=== PATIENT | female | born 1980 | race Caucasian/White ===

== ENCOUNTER 2016-07-31 22:51 | Emergency (ER) | payer OTHER ==
[~2016-07-31 22:51] MED LIST: ALBUTEROL1.25 MG/1 INH/SOL; ASPIRIN EC81 M1 PO; ATIVAN1 M1 PO; ATORVASTATIN CA10 M1 PO; PANTOPRAZOLE SO40 M1 PO; TIZANIDINE HCL4 M1 PO; XOPENEX HFA15 GM INH; ZOLMITRIPTAN ODT5 MG PO
--- NOTE | 2016-07-31 23:21 | ED GENERAL ADULT ---
History of Present Illness General Chief Complaint: General Adult Stated Complaint: LIGHTHEADED, NAUSEA, PALPITATIONS Source: patient, family, old records Exam Limitations: no limitations Allergies Coded Allergies: ezetimibe (From ZETIA) (Intermediate, RASH TO HANDS 11/03/15) doxycycline (Mild, RASH AND FEVER 11/03/15) ketorolac (Mild, HIVES, FEVER 11/03/15) Reconcile Medications Albuterol Sulfate 1.25 MG/3 ML VIAL.NEB 1 Vial INH/SANTA Q4-6 PRN ASTHMA ( Reported) Aspirin (Ecotrin*) 81 MG TABLET.DR 1 TAB PO DAILY HEART/BLOOD (Reported) Atorvastatin Calcium 10 MG TABLET 1 TAB PO DAILY CHOLESTEROL (Reported) Levalbuterol Tartrate (Xopenex Hfa) 15 GM HFA.AER.AD 2 PUF INH Q4-6 PRN PRN ASTHMA (Reported) Lorazepam (Ativan) 1 MG TABLET 1 TAB PO TID PRN anxiety ten...[id number] Lorazepam (Ativan) 1 MG TABLET 1 TAB PO ADD ADMIN CRITERIA ANXIETY 11/08: use 1 tab around 1pm, one tab around 9pm 11/09-11/10: use 1 tab every 12 hours 11/11-11/12: use half tab every 12 hours 11/13-11/14: use half tab daily Pantoprazole Sodium 40 MG TABLET.DR 1 TAB PO DAILY GI (Reported) Tizanidine HCl 4 MG TABLET 1 TAB PO TID PRN MUSCLE SPASMS (Reported) Zolmitriptan (Zolmitriptan Odt) 5 MG TAB.RAPDIS 1 TAB PO AD PRN MIGRAINES ( Reported) Triage Note: PER PT "LOSS OF FUNCTION" FELT THIS WAY IN AUG 2015 WHEN I WENT THROUGH [place] WITHDRAWAL, HAD A SEIZURE LAST DOSE OF XANAX 0.5 MG WAS 5-7 DAYS AGO RAN OUT EARLY NOT DUE FOR 2 MORE DAYS TO BE FILLED FEEL LIKE I AM PRE SZ. Triage Nurses Notes Reviewed? yes : No Patient currently breastfeeds: No HPI: Patient is a 35-year-old female presents complaining of rapid heartbeat, lightheadedness, generalized malaise. Patient reports that symptoms feel similar to when she was experiencing benzodiazepine withdrawal previously. Patient is prescribed Xanax 0.5 mg 3 times a day, reports that over the past month she has been taking 4-5 pills daily in that approximately 5-7 days ago she ran out of her medication. Patient is scheduled for a refill of her medication in a couple of days. Positive anxiety and tremors. Patient reports symptoms are severe. Patient taking Percocet as needed due to a previous wrist fracture, reports her last dose of Percocet was 2 days ago. Patient denies any seizures over the past week, illicit substance ingestion, vomiting, diarrhea, chest pain, dyspnea. (RADHA VELEZ) Vital Signs & Intake/Output Vital Signs & Intake/Output Vital Signs Date Time Temp Pulse Resp B/P Pulse O2 O2 Flow FiO2 Ox Delivery Rate 08/01 0238 96.9 88 16 97/55 / 0237 96.9 88 18 97/55 96 Room Air 07/31 2350 98.1 108 18 126/82 07/31 2350 98.1 108 18 126/82 97 Room Air 07/31 2309 100.1 123 18 158/94 97 Room Air ED Intake and Output 08/01 0000 07/31 1200 Intake Total Output Total Balance Patient 215 lb Weight Past History Travel History Traveled to [place] past 21 day No Medical History Any Pertinent Medical History? 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 Hx Contributory? No (RADHA VELEZ) Review of Systems Review of Systems Constitutional: Reports: malaise, weakness. Denies: chills, fever. EENTM: Reports: no symptoms. Respiratory: Denies: cough, short of breath. Cardiovascular: Reports: palpitations. Denies: chest pain. GI: Denies: abdominal pain, nausea, vomiting. Genitourinary: Reports: no symptoms. Musculoskeletal: Reports: joint pain (chronic wrist and knee pain). Skin: Reports: no symptoms. Neurological/Psychological: Reports: see HPI, anxiety, depressed (no suicidal ideation). Hematologic/Endocrine: Reports: no symptoms. Immunologic/Allergic: Reports: no symptoms. (RADHA VELEZ) Physical Exam Physical Exam General Appearance: alert, awake, anxious, mild tremors Head: atraumatic, normal appearance Eyes: Bilateral: normal appearance, PERRL, EOMI. Ears, Nose, Throat: normal pharynx, normal ENT inspection, hearing grossly normal Neck: normal inspection, supple, full range of motion Respiratory: normal breath sounds, chest non-tender, no respiratory distress, lungs clear Cardiovascular: tachycardia (regular rhythm) Gastrointestinal: soft, non-tender Extremities: normal inspection, normal capillary refill, normal range of motion, no edema Neurologic/Psych: awake, alert, oriented x 3, anxious appearing, no suicidal or homicidal ideation, no apparent hallucinations. Skin: intact, normal color, warm/dry Lymphatic: no anterior cervical kaushik Core Measures ACS in differential dx? Yes ASA ordered for poss ACS? No-ACS ruled out CVA/TIA Diagnosis: No Severe Sepsis Present: No Septic Shock Present: No (RADHA VELEZ) Progress Differential Diagnoses I considered the following diagnoses in my evaluation of the patient: Benzodiazepine withdrawal, polysubstance abuse, dehydration, dysrhythmia, thyroid dysfunction, electrolyte abnormality Initial ED EKG: sinus tachycardia 117 bpm normal axis, normal intervals, nonspecific ST/T-wave abnormalities, no significant change from previous EKG Prior EKG: unchanged Rhythm Strip: sinus tachycardia Hand-Off Endorsed To: PRANAV ALEMAN,GABE Conway Endorsed Time: 131 Pending: labs, other (re-evaluation) (RADHA VELEZ) Plan of Care: Orders Procedure Date/time Status [facility] 08/01 0009 Active THYROID STIMULATING HORMONE 07/31 2335 Complete ETHANOL 07/31 2335 Complete Add-on Test (ER Only) 07/31 2328 Active Telemetry/Analog Ic Design Engineer 07/31 232 Active URINE DRUG SCREEN FOR ER ONLY 07/31 2307 Complete TROPONIN LEVEL 07/31 230 Complete HUMAN BETA HCG SCREEN 07/31 2306 Complete COMPREHENSIVE METABOLIC PANEL 07/31 2306 Complete CBC WITHOUT DIFFERENTIAL 07/31 2305 Complete EKG 07/31 2253 Active Laboratory Tests 08/01/16 0204: Urine Opiates Screen 879.00, Methadone Screen 70, Barbiturate Screen < 60, Ur Phencyclidine Scrn < 6.00, Amphetamines Screen < 100, U Benzodiazepines Scrn 107 , Urine Cocaine Screen < 50, Urine Cannabis Screen < 5.00 08/01/16 0015: Anion Gap 13, Estimated GFR > 60, BUN/Creatinine Ratio 24.3, Glucose 102 H, Calcium 9.8, Total Bilirubin 0.4, AST 17, ALT 28, Alkaline Phosphatase 87, Troponin I < 0.01, Total Protein 7.9, Albumin 4.5, Globulin 3.4, Albumin/ Globulin Ratio 1.3, TSH 1.090, Total Beta HCG NEGATIVE, Serum Alcohol < 10.0 07/31/16 2335: CBC w Diff MAN DIFF ORDERED, RBC 4.61, MCV 83.9, MCH 28.0, RDW 13.9, MPV 8.6, Gran % 79.0 H, Lymphocytes % 13.8 L, Monocytes % 6.1, Eosinophils % 0.5, Basophils % 0.6, Absolute Granulocytes 12.8 H, Segmented Neutrophils 72, Absolute Lymphocytes 2.2, Lymphocytes 19 L, Monocytes 7, Absolute Monocytes 1.0 H, Eosinophils 1, Absolute Eosinophils 0.1, Basophils 1, Absolute Basophils 0.1 , Platelet Estimate ADEQUATE, Normocytic RBCs VERIFIED, Normochromic RBCs VERIFIED, PUBS MCHC 33.4 07/31/16 2306: D-Dimer Cancelled 0040: Patient's tachycardia improved to 90 bpm after IV ativan. patient currently sleeping. Awaiting results of labs. 0055: Patient reports moderate improvement. Mild chills. Discussed elevated WBC with patient. No current respiratory or GI symptoms. No focal infectious source identified. Signed out to Dr. Brennan. (RADHA VELEZ) Departure Departure Disposition: HOME OR SELF CARE Condition: Stable Clinical Impression Primary Impression: Benzodiazepine withdrawal Referrals: EMILIO JASSO MD (PCP/Family) Referred to [facility] as new patient No Departure Forms: Customer Survey General Discharge Information Prescriptions: Current Visit Scripts Lorazepam (Ativan) 1 TAB PO TID PRN anxiety #10 TAB ten...[id number] (RADHA VELEZ) Departure Comments 08/01/16, 2:49am... pt resting comfortably after supportive medications. I gave her a rx for ativan. She will follow up with her pmd. PA/TESTING MACHINE OPERATOR Co-Sign Statement Statement: ED Attending supervision documentation- [x] I saw and evaluated the patient. I have also reviewed all the pertinent lab results and diagnostic results. I agree with the findings and the plan of care as documented in the PA's/TESTING MACHINE OPERATOR's documentation. [] I have reviewed the ED Record and agree with the PA's/TESTING MACHINE OPERATOR's documentation. [] Additions or exceptions (if any) to the PAs/TESTING MACHINE OPERATOR's note and plan are summarized below: [] (PRANAV ALEMAN,GABE Conway) Critical Care Note Critical Care Note Critical Care Time: non-applicable (MELLISA JI,RADHA)
[2016-07-31 23:57] LABS: ABSOLUTE BASOPHIL COUNT 0.1 /CUMM (0.0-0.2); ABSOLUTE EOSINOPHIL COUNT 0.1 /CUMM (0.0-0.7); ABSOLUTE GRANULOCYTE CT 12.8 /CUMM (1.4-6.5); ABSOLUTE LYMPH COUNT 2.2 /CUMM (1.2-3.4); BASOPHIL % 0.6 % (0.0-2.0); EOSINOPHIL % 0.5 % (0-5); HEMATOCRIT 38.7 % (37-47); MEAN CORPUSCULAR HGB CONC 33.4 G/DL (33.0-37.0); MEAN CORPUSCULAR VOLUME 83.9 FL (81.0-99.0); MEAN PLATELET VOLUME 8.6 FL (7.4-10.4); PLATELET COUNT 423 /CUMM (130-400); RBC DISTRIBUTION WIDTH 13.9 % (11.5-14.5); RED BLOOD CELL CT 4.61 /CUMM (4.20-5.40); WHITE BLOOD CELL COUNT 16.1 /CUMM (4.8-10.8)
[2016-08-01] MEDS ORDERED: ATIVAN1 M1 PO (01:24)
[2016-08-01 02:38] VITALS: BP 97/55
== END 2016-08-01 02:54 ==
LOC: ERH 22:51
PROVIDERS: Pediatrics
DX: F13.239 Sedative, hypnotic or anxiolytic dependence with withdrawal, unspecified (principal)
CPT/HCPCS: 80307; 93005; 93010; 96361; 96374; G0480

== ENCOUNTER 2016-10-18 14:42 | Inpatient (IN) | payer OTHER ==
[~2016-10-18] VITALS: Ht 165.1 cm; Wt 90.7 kg
--- NOTE | 2016-10-18 14:47 | NUR ---
PT STATES SHE IS HAVING SOB WENT TO URGENT CARE RATTALING IN HER CHEST THAT CLEARED WITH COUGH. PT STATES DAY THREE SHE IS HAVING THICK SPUTUM. PROGRESSIVLY GETTING WORSE. PT STATES AT URGENT CARE HER 02 SAT WAS IN THE 80'S
--- NOTE | 2016-10-18 14:50 | NUR ---
PT STATES SHE IS ON AMOXICILLIN CURRENTLY FOR A DENTAL PROCEDURE SHE WILL BE HAVING DONE.
--- NOTE | 2016-10-18 16:11 | ED DYSPNEA/ASTHMA COMPLAINT ---
History of Present Illness General Chief Complaint: Upper Respiratory Sx/Fever Stated Complaint: SENT BY URGENT CARE FOR EVAL OF COUGH Source: patient Exam Limitations: no limitations Vital Signs & Intake/Output Vital Signs & Intake/Output Vital Signs Date Time Temp Pulse Resp B/P Pulse O2 O2 Flow FiO2 Ox Delivery Rate 10/20 1110 98 Room Air Room Air 10/20 0800 98 Nasal 1.0L Cannula 10/20 0708 98.1 82 20 118/70 98 Nasal 1.0L Cannula 10/20 0410 98 Nasal 1.0L Cannula 10/20 0000 Room Air 1.0L 10/19 2230 97.6 90 20 120/70 95 Nasal Cannula 10/19 2150 95 Nasal 1.0L Cannula 10/19 1600 Nasal 1.0L Cannula ED Intake and Output 10/20 0000 10/19 1200 Intake Total 1050 800 Output Total Balance 1050 800 Intake, IV 250 800 Intake, Oral 800 Number 2 Bowel Movements Allergies Coded Allergies: ezetimibe (From ZETIA) (Intermediate, RASH TO HANDS 11/03/15) doxycycline (Mild, RASH AND FEVER 11/03/15) ketorolac (Mild, HIVES, FEVER 11/03/15) Reconcile Medications Albuterol Sulfate 1.25 MG/3 ML VIAL.NEB 1 Vial INH/SANTA Q4-6 PRN ASTHMA ( Reported) Alprazolam 0.5 MG TABLET 1 TAB PO TID anxiety (Reported) Atorvastatin Calcium 10 MG TABLET 1 TAB PO DAILY CHOLESTEROL (Reported) Azithromycin 250 MG TABLET 250 MG PO DAILY LUNG INFECTION Fluoxetine HCl 20 MG CAPSULE 1 CAP PO DAILY DEPRESSION/ANXIETY (Reported) Levalbuterol Tartrate (Xopenex Hfa) 15 GM HFA.AER.AD 2 PUF INH Q4-6 PRN PRN ASTHMA . Pantoprazole Sodium 40 MG TABLET.DR 1 TAB PO DAILY GI (Reported) Prednisone 10 MG TABLET 1 TAB PO DAILY BREATHING 3 PILL X 3 DAYS 2 PILL X 3 DAYS 1 PILL X 3 DAYS. Temazepam 15 MG CAPSULE 1 CAP PO QPMP SLEEP AIDE (Reported) Tizanidine HCl 4 MG TABLET 1 TAB PO FOUR TIMES A DAY PRN TMJ syndrome ( Reported) Zolmitriptan (Zolmitriptan Odt) 5 MG TAB.RAPDIS 1 TAB PO AD PRN MIGRAINES ( Reported) Triage Note: PT STATES SHE IS HAVING SOB WENT TO URGENT CARE RATTALING IN HER CHEST THAT CLEARED WITH COUGH. PT STATES DAY THREE SHE IS HAVING THICK SPUTUM. PROGRESSIVLY GETTING WORSE. PT STATES AT URGENT CARE HER 02 SAT WAS IN THE 80'S Triage Nurses Notes Reviewed? yes : No Patient currently breastfeeds: No HPI: This patient is a 36 year old female with a past medical history including asthma who presented to the emergency department today for evaluation of shortness of breath. The patient reported that about 4 days ago she was clearing the snow off her car when she started to have, "a bronchospasm." She reported that she was sweating and had to take deep breaths. She has had a cough productive of yellow-brown sputum and increased difficulty breathing over the last couple of days. Tpday she woke up, "very photosensitive and with a headache." She denied any chest pain, abdominal pain, nausea, vomiting, or diarrhea. (TACHO HUANG PA-C) Past History Travel History Traveled to [place] past 21 day No Medical History Any Pertinent Medical History? 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 Hx Contributory? No (TACHO HUANG PA-C) Review of Systems Review of Systems Constitutional: Reports: no symptoms. EENTM: Reports: no symptoms. Respiratory: Reports: see HPI. Cardiovascular: Reports: no symptoms. GI: Reports: no symptoms. Genitourinary: Reports: no symptoms. Musculoskeletal: Reports: no symptoms. Skin: Reports: no symptoms. Neurological/Psychological: Reports: see HPI. All Other Systems: Reviewed and Negative (TACHO HUANG PA-C) Physical Exam Physical Exam Respiratory: chest non-tender, mild respiratory distress. wheezes and rhonchi in all lung bailey. no rales or diminished breath sounds. Comments: Well-developed well-nourished person in no acute distress HEENT: Normal EENT exam, head normocephalic, moist mucous membranes Pupils equally round and reactive to light. Neck: Supple, no lymphadenopathy. No midline tenderness. Full range of motion Back: Normal gait Cardiovascular: Regular rate and rhythm with no murmurs, rubs, or gallops Abdomen: Soft, nontender, nondistended Extremity: No edema, no calf tenderness to palpation, normal and equal pulses. Neuro: Alert oriented x3, cranial nerves II through XII grossly intact. Skin: No appreciable rash on exposed skin, skin is warm and dry. Psych: Mood and affect is normal Core Measures ACS in differential dx? Yes Severe Sepsis Present: No Septic Shock Present: No (REINA GARDNER,TACHO) Progress Differential Diagnosis: asthma, AMI, bronchitis, costochondritis, CHF, COPD, musculoskeletal pain, pericarditis, pulmonary embolism, pneumonia, unstable angina Plan of Care: Orders Procedure Date/time Status BASIC ELECTROLYTES PLUS BUN&CR 10/20 0744 Complete Discharge Patient 10/20 UNK Active OXYGEN 10/19 UNK Complete OXYGEN DAILY CHARGE 10/19 UNK Complete Anticipated Discharge 10/19 UNK Active Current Medications Sig/Hilario Start time Last Medication Dose Stop Time Status Admin Patient Medication 1 ED ONE 10/20 0000 NR Teaching 10/20 2359 (Medication Education ONE) Laboratory Tests 10/20/16 0821: Anion Gap 9, Estimated GFR > 60, BUN/Creatinine Ratio 23.3 Diagnostic Imaging: Viewed by Me: CT Scan. Discussed w/RAD: CT Scan. Radiology Impression: PATIENT: MARY MOTT PRESENT AGE: 36 PATIENT ACCOUNT NO: [id number] : 78 LOCATION: [facility] ORDERING PHYSICIAN: TACHO HUANG PA-C SERVICE DATE: 10/18/16 EXAM TYPE: CAT - CTA CHEST-PULMONARY EMBOLISM EXAMINATION: CT ANGIOGRAM OF THE CHEST WITH AND WITHOUT CONTRAST (CT PULMONARY ANGIOGRAM FOR PE) CLINICAL INFORMATION: Cough. Elevated d-dimer. Clinical concern regarding pulmonary embolus COMPARISON : None TECHNIQUE: Prior to contrast administration, noncontrast localization images were obtained. Subsequently, multidetector volumetric imaging was performed from the thoracic inlet to below the diaphragms following the administration of 95 mL Optiray 350 intravenous contrast. No contrast reaction reported Sagittal, coronal, and MIP oblique sagittal reformatted images were obtained on the CT workstation, uploaded to PACS, and reviewed. Total exam dose- length product 492 mGy-cm FINDINGS: DIGITAL TELEVISION CAMERA OPERATOR: Diffuse opacities throughout both lungs QUALITY OF STUDY/CONTRAST BOLUS: Satisfactory. There is motion artifact PULMONARY ARTERIES: No pulmonary embolus demonstrated THORACIC AORTA: No aneurysm or dissection. LUNG: No abnormality the trachea or mainstem bronchi. There are extensive perihilar and diffuse areas of groundglass disease with sparing of the peripheral lungs. Pattern suggests edema. PLEURA: No significant pleural fluid. Trace thickening in the extreme posterior cusp and sulci. There is no pneumothorax MEDIASTINUM: There are no enlarged mediastinal or hilar lymph nodes. There is no pericardial fluid. No suspicious abnormality esophagus No evidence of septal bowing or right heart strain. CHEST WALL/AXILLA: No axillary or internal mammary lymphadenopathy. OSSEOUS STRUCTURES: No suspicious focal bony lesion UPPER ABDOMEN: Incompletely characterized rounded low attenuating lesion medial upper right kidney. This measures 28 Hounsfield units after contrast. This has either developed or increased when compared to abdomen . Neoplasm not excluded. Further evaluation warranted. No reflux of contrast into the hepatic veins to suggest elevated right heart pressures. IMPRESSION: No pulmonary embolus. Extensive bilateral groundglass disease. This could be related to edema 2.1 cm low attenuating mass medial upper right kidney. Differential includes malignancy. Further evaluation warranted. If there is any evidence of focal pyelonephritis medical management and follow-up imaging recommended. VTE: negative DICTATED BY: RENETTA UREÑA MD DATE/TIME DICTATED:1841 GROUND OPERATIONS SUPERINTENDENT:SANDRA DATE/TIME TRANSCRIBED:10/18/161841 CONFIDENTIAL, DO NOT COPY WITHOUT APPROPRIATE AUTHORIZATION. <Electronically signed in Other Vendor System> SIGNED BY: RENETTA UREÑA MD 10/18/16 3364 Initial ED EKG: normal axis, normal intervals, normal sinus rhythm, no ST T wave changes, 87 bpm Comments: 10/18/2016 4:10:42 PM: This patient was moved into a room. Oxygen on room air is dropping into the mid 80s. She'll be put on oxygen. The patient also reported that she is on medication because she has, "a baseline high heart rate." (REINA GARDNER,TACHO) Departure Departure Disposition: STILL A PATIENT Condition: Stable Clinical Impression Primary Impression: Hypoxia Referrals: EMILIO JASSO MD (PCP/Family) Departure Forms: Customer Survey General Discharge Information Prescriptions: Current Visit Scripts Azithromycin 250 MG PO DAILY #2 TAB Prednisone 1 TAB PO DAILY #21 TAB 3 PILL X 3 DAYS 2 PILL X 3 DAYS 1 PILL X 3 DAYS. Levalbuterol Tartrate (Xopenex Hfa) 2 PUF INH Q4-6 PRN PRN ASTHMA #1 INHAL . Admission Note Spoke With: VERONIKA GUPTA MDOdilon Documentation of Exam: Documentation of any treatments & extenuating circumstances including Concerns Regarding Discharge (functional status, medication knowledge or non-compliance, living conditions, etc.) that warrant an admission rather than observation: [ This patient is a 36 year old female with a past medical history including asthma who presented for cough and shortness of breath. Hypoxic at 88% on room air. Retaining CO2 based on ABG. Groundglass opacities seen on CTA of the chest. This patient will need to be admitted for oxygen therapy, pulmonology consult, follow-up cultures, trend labs, serial duoneb treatments, and possible cardiology consult. Premature discharge could prove medically harmful.] (TACHO HUANG PA-C) PA/OPERATIONS AND MAINTENANCE TECHNICIAN Co-Sign Statement Statement: ED Attending supervision documentation- [] I saw and evaluated the patient. I have also reviewed all the pertinent lab results and diagnostic results. I agree with the findings and the plan of care as documented in the PA's/OPERATIONS AND MAINTENANCE TECHNICIAN's documentation. [X] I have reviewed the ED Record and agree with the PA's/OPERATIONS AND MAINTENANCE TECHNICIAN's documentation. [] Additions or exceptions (if any) to the PAs/OPERATIONS AND MAINTENANCE TECHNICIAN's note and plan are summarized below: [] (AKILAH ALEMAN,SHANE) Critical Care Note Critical Care Note Critical Care Time: 30-74 min (TACHO HUANG PA-C)
[2016-10-18 16:42] LABS: ABSOLUTE BASOPHIL COUNT 0 /CUMM (0.0-0.2); ABSOLUTE EOSINOPHIL COUNT 0.1 /CUMM (0.0-0.7); ABSOLUTE GRANULOCYTE CT 11.9 /CUMM (1.4-6.5); ABSOLUTE LYMPH COUNT 1.3 /CUMM (1.2-3.4); ABSOLUTE MONOCYTE COUNT 0.7 /CUMM (0.10-0.60); BASOPHIL % 0.3 % (0.0-2.0); GRANULOCYTE % 84.7 % (42.2-75.2); HEMATOCRIT 34.7 % (37-47); MEAN CORPUSCULAR HGB 26.1 PG (27.0-31.0); MEAN CORPUSCULAR HGB CONC 32.2 G/DL (33.0-37.0); MEAN CORPUSCULAR VOLUME 80.8 FL (81.0-99.0); MEAN PLATELET VOLUME 8.7 FL (7.4-10.4); PLATELET COUNT 287 /CUMM (130-400); RBC DISTRIBUTION WIDTH 14.8 % (11.5-14.5); RED BLOOD CELL CT 4.29 /CUMM (4.20-5.40)
--- NOTE | 2016-10-18 18:57 | CT SCAN REPORT ---
EXAMINATION: CT ANGIOGRAM OF THE CHEST WITH AND WITHOUT CONTRAST (CT PULMONARY ANGIOGRAM FOR PE) CLINICAL INFORMATION: Cough. Elevated d-dimer. Clinical concern regarding pulmonary embolus COMPARISON: None TECHNIQUE: Prior to contrast administration, noncontrast localization images were obtained. Subsequently, multidetector volumetric imaging was performed from the thoracic inlet to below the diaphragms following the administration of 95 mL Optiray 350 intravenous contrast. No contrast reaction reported Sagittal, coronal, and MIP oblique sagittal reformatted images were obtained on the CT workstation, uploaded to PACS, and reviewed. Total exam dose-length product 492 mGy-cm FINDINGS: DIGITAL LAND APPRAISER: Diffuse opacities throughout both lungs QUALITY OF STUDY/CONTRAST BOLUS: Satisfactory. There is motion artifact PULMONARY ARTERIES: No pulmonary embolus demonstrated THORACIC AORTA: No aneurysm or dissection. LUNG: No abnormality the trachea or mainstem bronchi. There are extensive perihilar and diffuse areas of groundglass disease with sparing of the peripheral lungs. Pattern suggests edema. PLEURA: No significant pleural fluid. Trace thickening in the extreme posterior cusp and sulci. There is no pneumothorax MEDIASTINUM: There are no enlarged mediastinal or hilar lymph nodes. There is no pericardial fluid. No suspicious abnormality esophagus No evidence of septal bowing or right heart strain. CHEST WALL/AXILLA: No axillary or internal mammary lymphadenopathy. OSSEOUS STRUCTURES: No suspicious focal bony lesion UPPER ABDOMEN: Incompletely characterized rounded low attenuating lesion medial upper right kidney. This measures 28 Hounsfield units after contrast. This has either developed or increased when compared to abdomen 12/07/09. Neoplasm not excluded. Further evaluation warranted. No reflux of contrast into the hepatic veins to suggest elevated right heart pressures. IMPRESSION: No pulmonary embolus. Extensive bilateral groundglass disease. This could be related to edema 2.1 cm low attenuating mass medial upper right kidney. Differential includes malignancy. Further evaluation warranted. If there is any evidence of focal pyelonephritis medical management and follow-up imaging recommended. VTE: negative
--- NOTE | 2016-10-18 19:21 | NUR ---
TO CT SCAN PER CART
--- NOTE | 2016-10-18 19:56 | History & Physical ---
BROOK ALEMAN,EUGENIOOdilon 10/18/161954: [facility] Statement: I have seen and personally examined MARY MOTT and documented this H&P. The patient is a 36 year old F who presented with a patient stated chief complaint of [SOB and headache]. Source of Information: patient, old records Exam Limitations: no limitations History of Present Illness: This is a 36 yo female with PMH migraine, seizure 2/2 benzo withdrawl, hyperlipidemia, asthma who comes in from urgent care 2/2 low saturations. Patient states her symptoms started 4 days ago when she was cleaning snow off her car and had a "bronchospasm." Initial symptoms seemed to improve with rest and inhalers. However for the past 4 days she has noted progressively worsening wheezing, night time cough- at times productive, and shortness of breath. In conjunction with respiratory symptoms, patient has noted worsening headache. She does have a history of migraines but she says this headache feels different than previous episodes. She notes stiff neck, nausea, photophobia, and generalized ache throughout her head. As symptoms were not improving with her nebs, inhaler and rest, patient went to urgent care where she was found to be desaturating in the 80s and she was sent to the hospital. Note that patient has significant social history of smoking 0.5-1 pack a day for the past 20 years. She has a history of heroin use. She stated 4 days ago she had snorted some herion after 3 yrs of abstaining from the drug. Denies any hx of IVDA. Patient has recent history of impetigo for which she finished a course of Bactrim DS about 2 weeks ago. She had recent bone graft placed in oral cavity. She was scheduled for tooth extraction yesterday but was not done. For her dental work prophylaxis she had been placed on amoxicillin for the past month. Patient has previous admission [facility] in October 2015 for benzodiazepine withdrawal. 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 She denies any odynophagia, Sore Throat, Difficulty Swallowing, Change in Vision , Dizziness, Diarrhea, vomiting, melena, bright red blood per rectum, constipation, vertigo, but endorses rhinorrhea, headache, neck pain, nausea, and shortness of breath. Allergies/Medications Allergies: Coded Allergies: ezetimibe (From ZETIA) (Intermediate, RASH TO HANDS 11/03/15) doxycycline (Mild, RASH AND FEVER 11/03/15) ketorolac (Mild, HIVES, FEVER 11/03/15) Home Med list Albuterol Sulfate 1.25 MG/3 ML VIAL.NEB 1 Vial INH/SANTA Q4-6 PRN ASTHMA ( Reported) Alprazolam 0.5 MG TABLET 1 TAB PO TID anxiety (Reported) Atorvastatin Calcium 10 MG TABLET 1 TAB PO DAILY CHOLESTEROL (Reported) Fluoxetine HCl 20 MG CAPSULE 1 CAP PO DAILY DEPRESSION/ANXIETY (Reported) Levalbuterol Tartrate (Xopenex Hfa) 15 GM HFA.AER.AD 2 PUF INH Q4-6 PRN PRN ASTHMA (Reported) Pantoprazole Sodium 40 MG TABLET.DR 1 TAB PO DAILY GI (Reported) Temazepam 15 MG CAPSULE 1 CAP PO QPMP SLEEP AIDE (Reported) Tizanidine HCl 4 MG TABLET 1 TAB PO FOUR TIMES A DAY PRN TMJ syndrome ( Reported) Zolmitriptan (Zolmitriptan Odt) 5 MG TAB.RAPDIS 1 TAB PO AD PRN MIGRAINES ( Reported) Compliance With Home Meds: UNKNOWN Past History Travel History Traveled to [place] past 21 day No Medical History Neurological: migraine, seizure (benzodiazepine withdrawal) EENT: NONE Cardiovascular: hyperlipidemia Respiratory: asthma Gastrointestinal: NONE Hepatic: NONE Renal: NONE Musculoskeletal: NONE Psychiatric: substance abuse, benzodiazepine abuse, HEROIN USE (SNORTS) Endocrine: NONE Blood Disorders: NONE Cancer(s): NONE SENIOR ANALYST MARKET INTELLIGENCE/Reproductive: NONE History of MRSA: Yes History of VRE: No History of CDIFF: No Pneumonia Vaccine Status: Given in past- Date Above Tetanus Vaccine: 05/06/15 Surgical History Surgical History: BONE GRAFT IN ORAL CAVITY, TONSILS REMOVED, L. KNEE SURGERY, Lap for ruptured ovarian cyst Past Family/Social History Family History Relations & Conditions if any MOTHER FATHER (CAD). Psychosocial History Smoking Status: Heavy Tobacco Smoker ETOH Use: occasional use Illicit Drug Use: heroin Functional Ability ADLs Independent: dressing, eating, toileting, bathing. Ambulation: independent IADLs Needs Assist: shopping, housework, finances, food prep, telephone, transportation, medication admin. Sexual History Sexually Active No Review of Systems Review of Systems Constitutional: Reports: chills, fever, malaise. Denies: diaphoresis. EENTM: Denies: blurred vision, double vision, visual changes, ear pain, nasal pain, throat pain. Cardiovascular: Denies: chest pain, palpitations, peripheral edema. Respiratory: Reports: cough, short of breath, sputum production, wheezing. Denies: hemoptysis. GI: Reports: nausea. Denies: abdominal pain, constipation, diarrhea, vomiting. Genitourinary: Reports: no symptoms. Musculoskeletal: Reports: neck pain. Exam & Diagnostic Data Last 24 Hrs of Vital Signs/I&O Vital Signs Date Time Temp Pulse Resp B/P Pulse O2 O2 Flow FiO2 Ox Delivery Rate 10/18 2257 97.9 90 20 104/66 94 Nasal 3.0L Cannula 10/18 2154 98.0 88 20 102/71 98 Nasal 4.0L Cannula 10/18 1637 98 Nasal 2.0L Cannula 10/18 1611 99.0 102 22 102/58 88 Room Air 10/18 1448 97.5 101 18 122/70 90 Room Air Intake & Output 10/18 1600 10/18 0800 10/18 0000 Intake Total Output Total Balance Patient 90.718 kg Weight Physical Exam General Appearance Alert, Oriented X3, Cooperative, No Acute Distress Skin scabbed over impetigo in arms; rash on abdomen (l. side about 3x3 in; looks erythematous, nontender, non purulent) HEENT EOMI, Mucous Membr. moist/pink, pupils dilated, reactive to light. Neck Supple, negative Kernig and Brudzinski Cardiovascular Regular Rate, Normal S1, Normal S2, No Murmurs Lungs No wheezing appreicated. Slight crackles on l side. Diminished air sounds Abdomen Soft, No Tenderness Neurological Normal Speech, Strength at 5/5 X4 Ext, Sensation Intact, Cranial Nerves 3-12 NL Extremities No Clubbing, No Cyanosis, No Edema, Normal Pulses Last 24 Hrs of Labs/Speedy: Laboratory Tests 10/18/16 1713: pH 7.38, pCO2 46 H, pO2 78 L, HCO3 26.2, ABG O2 Sat (Measured) 96.0, Carboxyhemoglobin 1.6, O2 Concentration % 3L, Temperature 97.5, O2 Delivery Method NC, Phlebotomy Draw Site LEFT RADIAL 10/18/16 1640: Infectious Morgan Titer NEGATIVE 10/18/16 1630: Anion Gap 8, Estimated GFR > 60, BUN/Creatinine Ratio 15.0, Glucose 102 H, Calcium 9.5, Magnesium 2.2, Total Bilirubin 0.4, AST 29, ALT 35, Alkaline Phosphatase 116, Troponin I < 0.01, Mwo-V-Pweokanfmzq Pept 1760 H, Total Protein 7.1, Albumin 3.9, Globulin 3.2, Albumin/Globulin Ratio 1.2, Total Beta HCG NEGATIVE, D-Dimer 482 H, CBC w Diff NO MAN DIFF REQ, RBC 4.29, MCV 80.8 L, MCH 26.1 L, RDW 14.8 H, MPV 8.7, Gran % 84.7 H, Lymphocytes % 8.9 L, Monocytes % 5.1, Eosinophils % 1.0, Basophils % 0.3, Absolute Granulocytes 11.9 H, Absolute Lymphocytes 1.3, Absolute Monocytes 0.7 H, Absolute Eosinophils 0.1 , Absolute Basophils 0, PUBS MCHC 32.2 L, Hepatitis A IgM Ab Pending, Hep Bs Antigen Pending, Hep B Core IgM Ab Conf Pending, Hepatitis C Antibody Pending, HIV 1&2 Ab Western Blot NONREACTIVE Microbiology 10/19 2111 NASOPHARYN: Influenza Virus A & B Rapid Smear - ORD 10/18 2046 BLOOD: Blood Culture - RECD 10/18 2045 URINE ROUT: Legionella Antigen - ORD 10/18 2045 URINE ROUT: Streptococcus pneumoniae Antigen (M - ORD 10/18 2045 LOWER RESP: Respiratory Culture - ORD 10/18 2045 LOWER RESP: Gram Stain - ORD 10/18 1830 BLOOD: Blood Culture - RECD Assessment/Plan Assessment: This is a 28-year-old female past medical history significant for migraine, seizures secondary to benzo withdrawal, hyperlipidemia, asthma, substance abuse in the form of snorting heroin, who comes in for chief complaint of shortness of breath. She has white count of 14 and CTA shows extensive groundglass opacities. Differential includes: CAP, atypical pneumonia, pneumonitis secondary to snorting heroin, asthma exacerbation, COPD exacerbation. Plan Hypoxia: Patient was found to be satting in the 80s at urgent care. Here she was found to be satting 88. ABG shows: 7.38/46/26.2. D-dimer elevated at 482. CTA negative for pulmonary embolus. CTA shows evidence of extensive groundglass opacities bilaterally. White count of 14. Patient reports MAXIMUM TEMPERATURE 100.8 at home. It is difficult to attribute the white count and fever solely to pneumonia in light of the groundglass opacities, history of amoxicillin use and the temporal relationship of her symptoms to heroin. We'll currently treat as atypical pneumonia versus pneumonitis. * Azithromycin * TRC * Vision 1 dose of ceftriaxone in ED. We will hold off on any further doses. If she spikes fever or has clinical evidence of pneumonia we will resume antibiotic. * Nasal cannula for O2 sat greater than 92% * Negative Monospot * Follow-up HIV/Hepatitis serology * Follow-up urine Legionella and strep * At this time holding off her home amoxicillin prophylaxis Headache: Patient has history of migraine treated with zolmitriptan, in addition she takes Tizanadine for TMJ. Patient describes photophobia, neck stiffness and generalized headache. On physical exam she does not have a Kernig or Brudzinski. Neck is supple. AOX3; cranial nerve exam within normal limits. No focal neurologic deficits. At this time do not suspect meningitis or intracranial infection. Continue to monitor clinically. * Continue home migraine regimen Incidental right kidney cyst: On CTA patient had a right kidney cyst noted at 2.1 cm. * She will need further workup for this on the outpatient basis Anxiety/depression: chronic and stable * Continue Xanax * Continue fluoxetine GERD: Chronic and stable * Continue Protonix Hyperlipidemia: Chronic and stable * Continue statin Smoking: Counseled cessation. * nicotine patch FC Heart healthy diet Chemical dvt ppx As Ranked By This Provider Problem List: 1. Hypoxia Core Measures/Miscellaneous Acute Coronary Syndrome ACS Diagnosis: No Cerebrovascular Accident CVA/TIA Diagnosis: No Congestive Heart Failure CHF Diagnosis: No Venous Thromboembolism VTE Risk Factors: Acute medical illness, Age > 40 [facility] prophylaxis d/t: No contraindications No VTE Pharm Prophylaxis d/t: No contraindications VTE Diagnosis: No VTE Type: NONE VTE Confirmed by (Test): NONE Severe Sepsis Severe Sepsis Present: No Septic Shock Septic Shock Present: No Miscellaneous Documentation Attending Case Discussed With: ABRAHAN GUPTA MD Primary Care Physician: EMILIO JASSO MD Patient sees these Specialists unknown Level of Patient Care: General Medicine ANGÉLICA ALEMAN,SHEY 10/18/163: Resident Review Statement Resident Statement: examined this patient, discussed with internet marketing manager, agreed with internet marketing manager, discussed with family, reviewed EMR data (avail), discussed with nursing , discussed with case mgmt, reviewed images, amended to note Other Findings: Cayla is an 28-year-old woman with a history of benzodiazepine dependence, polysubstance abuse disorder including opiates disorder, anxiety and depression asthma insomnia GERD migraine disorder and hyperlipidemia rectal polyp with history of lower GI bleed, active tobacco smoker. Presents with a history of 4 days of headache cough is productive malaise and arthralgias wheezing and dyspnea. One day of "neck pain and stiffness". Etc. help with a migraine headache. He sought medical attention urgent care where she was found to be hypoxic. She also reports photophobia, nausea without emesis. Additionally she reports a rash that developed 3 weeks ago on the right arm and abdomen thought to be due to competitive treated with Bactrim. She has also been on amoxicillin for. A full month due to dental procedure. At present she is awake alert oriented, does not appear to be toxic. Afebrile, slightly tachycardic. Blood pressure is 155. She is 98% 2 L but was 80% on room air. In the ER she got 1 g of Tylenol IV 1, ceftriaxone, azithromycin and albuterol nebulizer. Physical examination is noted for dilated pupils. Negative Kernig and Brudzinski sign. Leukocytosis with 14,000. D-dimer [address] of the chest did not demonstrate a pulmonary embolus. There was however, bilateral groundglass opacities which may represent pneumonia versus edema. Incidental finding of 2.1 cm right kidney mass ?malignancy. ABG demonstrated compensated respiratory acidosis. Suspect atypical pneumonia, low suspicion for meningitis. Patient reports recent use of snorting heroine. - Problems - Atypical pneumonia versus pneumonitis from freebasing heroin Opiate use Anxiety Depression Chronic BZD use - Plan - Admit to Supportive Tx Influenza swab Azithromycin 500mg iv q24 Prednisone 40mg x 1, 30 x 1, 20 x 1 ,10 x1 then stop Await Cx Urine Ag, legionella & s.pneumo Urine tox Cont. anxiety/depression meds. Hold Benzodiazepines if sedated. DVT ppx alps JASON GUPTA MD, [facility] 10/18/16 7925: Attending MD Review Statement Attending Statement Attending MD Statement: examined this patient, discuss w/resident/PA/OFFICE RUNNER, agreed w/resident/PA/OFFICE RUNNER Attending Assessment/Plan: 36 yo F smoker with h/o asthma, GERD, KASHIF, GERD, migraine, benzodiazepine and heroin abuse, benzo/opiate withdrawal seizure, anxiety/ depression, last admitted to [place] (October 2015) for benzo withdrawal, is here with 4-day h/o productive cough, wheezing, dyspnea, headache and fever 100.8 after she shovelled snow. She was seen at a [facility]-in center, where she was noted to be hypoxic to 84% on RA, and referred to ER. 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 Of note, she snorted a bag of heroin 4 days ago, continues to smoke cigarettes and uses occasional alcohol. Vitals: Tmax 99, tachycardic, BP 102/71, sats 88% RA --> 98% on 4L. Exam: mid dilated pupils RTL, dry mucous membranes, Chest b/l rhonchi, no wheeze or crackles. Labs: WBC 14, microcytic anemia, D-dimer 482, trop neg, proBNP 1760, AB.38/46/78/26. CTA chest: no PE, extensive perihilar and diffuse groundglass disease of peripheral lungs, ?edema. 2.1 cm right upper kidney mass. EKG: SR with nonspecific ST-T changes. 1. Acute hypoxic respiratory failure in the setting of chemical pneumonitis vs. Atypical pneumonia vs. Possible noncardiogenic pulmonary edema. She had wheezing on ER arrival, which resolved with nebs. On my evaluation, there was no evident wheezing. Possible mild asthma exacerbation. GM admit, TRC nebs, flu swab, sputum culture, urine tox screen. I don't think she is in pulmonary edema as depicted by the CT. Patient received ceftriaxone and azithro in ER, will continue with azithro. Rapid prednisone taper. Check HIV and Hep panel. Smoking cessation counseling. Nicotine patch. 2. Right renal mass. Patient is aware of this for past few years, but has not been evaluated. She should follow with PCP and nephro as outpatient. 3. H/o iron deficiency anemia. Restart iron supplements. 4. Continue prozac for depression, tizanidine for TMJ, lipitor for HLD, protonix for GERD, xanax and restoril. DVT ppx Alps. Full code.
[2016-10-18] MEDS ORDERED: ALPRAZOLAM0.5 M4 PO (20:21)
[2016-10-18] MEDS ORDERED: FLUOXETINE HCL20 M2 PO (20:23)
--- NOTE | 2016-10-18 21:15 | NUR ---
PT'S RM ASSIGNMENT 237 BED 1
--- NOTE | 2016-10-18 21:24 | NUR ---
REPORT GIVEN AND TRANSPORT CALLED AND RECORDED MESSAGE GIVE
[2016-10-18] MEDS ORDERED: TEMAZEPAM15 M1 PO (22:10)
--- NOTE | 2016-10-18 22:56 | Admission Certification ---
Admission Certification Certification Statement - As attending physician, I certify that at the time of - admission, based on clinical presentation, severity of - symptoms, need for further diagnostic testing and - therapeutic interventions, and risk of adverse outcomes - without in-hospital treatment, in my clinical assessment, - this patient requires an acute hospital stay for a minimum - of two nights or longer. I have also considered psychsocial - factors such as support system, advanced age, financial - issues, cognitive issues, and failed out-patient treatments, - past re-admission history, safety of patient, and lack of - compliance as applicable. Specific rationale supporting this admission is: Acute hypoxic respiratory failure, chemical pneumonitis vs. CAP.
[2016-10-18 22:57] VITALS: BP 104/66
--- NOTE | 2016-10-19 02:06 | NUR ---
LATE ENTRY: PT ARRIVED TO FLOOR AT 2200. ORIENTED TO CALL HANNAH, SUKHJINDER AND RN. CONTACT PRECAUTIONS IN PLACE. 3LNC, DENIES SOB. DENIES PAIN. SKIN INTACT. FLU SWAB AND MULTIPLE URINE ORDERS NOT COLLECTED IN ED BEFORE PT CAME TO FLOOR. WILL COMPLETE ORDERS OVERNIGHT. PT OFFERS NO COMPLAINTS. WILL MONITOR.
[2016-10-19 07:29] VITALS: BP 120/78
--- NOTE | 2016-10-19 07:29 | PN- Housestaff ---
KASSANDRA ALEMAN,[facility] 10/19/16 0729: Subjective Follow-up For: SOB Headache Subjective: Afebrile, reports significant improvement on her shortness breath and cough. She still complaining of mild headache. She could not provide a sputum sample for culture yet. She saturating in the lower 90s on 3 L of oxygen. She denies chest pain, palpitation, fever, chills, or any other complaints. Review of Systems Constitutional: Denies: chills, fever, weakness. EENTM: Denies: visual changes, hearing changes, throat pain. Cardiovascular: Denies: chest pain, palpitations. Respiratory: Reports: cough. Denies: hemoptysis, sputum production, wheezing. Gastrointestinal: Denies: abdominal pain, constipation, diarrhea, nausea, vomiting. Genitourinary: Denies: dysuria. Objective Last 24 Hrs of Vital Signs/I&O Vital Signs Date Time Temp Pulse Resp B/P Pulse O2 O2 Flow FiO2 Ox Delivery Rate 10/19 0800 Nasal 3.0L Cannula 10/19 0729 98.4 89 20 120/78 93 Nasal 3.0L Cannula 10/18 2329 94 Nasal 3.0L Cannula 10/18 2257 97.9 90 20 104/66 94 Nasal 3.0L Cannula 10/18 2154 98.0 88 20 102/71 98 Nasal 4.0L Cannula 10/18 1637 98 Nasal 2.0L Cannula 10/18 1611 99.0 102 22 102/58 88 Room Air 10/18 1448 97.5 101 18 122/70 90 Room Air Intake & Output 10/19 1600 10/19 0800 10/19 0000 Intake Total 800 Output Total Balance 800 Intake, IV 800 Patient 90.718 kg Weight Physical Exam General Appearance: Alert, Oriented X3, Cooperative, No Acute Distress Skin: No Rashes HEENT: Atraumatic, PERRLA, EOMI, Mucous Membr. moist/pink Cardiovascular: Regular Rate, Normal S1, Normal S2, No Murmurs Lungs: Clear to Auscultation Abdomen: Soft, No Tenderness Neurological: Normal Speech Extremities: No Clubbing, No Cyanosis, No Edema Current Medications: Current Medications Sig/Hilario Start time Last Medication Dose Route Stop Time Status Admin Acetaminophen 650 MG Q6P PRN 10/18 2044 AC PO Acetaminophen 0 .STK-MED ONE 10/18 1727 DC PO Acetaminophen 975 MG ONCE ONE 10/18 1630 DC 10/18 PO 10/18 1631 1728 Albuterol Sulfate 3 ML Q4P PRN 10/18 2100 AC INH Albuterol Sulfate 3 ML ONCE ONE 10/18 1600 DC 10/18 INH 10/18 1601 1615 Alprazolam 0.5 MG TID 10/180 AC 10/18 PO 10/25 2158 211 Alprazolam 0 .STK-MED ONE 10/18 2114 DC PO Atorvastatin Calcium 10 MG DAILY 10/19 1000 AC PO Azithromycin 500 MG 2000 10/20 1999 AC Sodium Chloride 250 ML IV Azithromycin 500 MG ONCE ONE 10/18 1944 DC 10/18 Sodium Chloride 250 ML IV 10/18 Ceftriaxone Sodium 0 .STK-MED ONE 10/18 1956 DC .ROUTE Ceftriaxone Sodium 1,000 MG ONCE ONE 10/18 1944 DC 10/18 IV 10/18 Fluoxetine HCl 20 MG DAILY 10/19 1000 AC PO Guaifenesin 10 ML Q4P PRN 10/19 0800 AC PO Influenza Virus 0.5 ML 1000 10/19 1000 AC Vaccine IM 10/19 1001 Ipratropium [place] 2.5 ML ONCE ONE 10/18 1600 DC 10/18 INH 10/18 1601 1615 Nicotine 21 MG DAILY 10/19 1000 AC TOP Prednisone 10 MG DAILY 10/21 1000 AC PO 10/21 1001 Prednisone 20 MG DAILY 10/20 1000 AC PO 10/20 1001 Prednisone 30 MG DAILY 10/19 1000 AC PO 10/19 1001 Prednisone 0 .STK-MED ONE 10/18 2114 DC PO Prednisone 40 MG DAILY 10/18 2100 DC 10/18 PO 2115 Prochlorperazine 10 MG Q6P PRN 10/18 2044 AC IV Sodium Chloride 1,000 ML ONCE ONE 10/18 2044 DC 10/18 IV 10/19 Temazepam 15 MG AT BEDTIME 10/18 2214 AC 10/18 PO 234 Tizanidine HCl 4 MG 4 TIMES/DAY PRN 10/18 2199 AC PO Last 24 Hrs of Lab/Speedy Results Last 24 Hrs of Labs/Mics: Laboratory Tests 10/19/16 0705: Anion Gap 8, Estimated GFR > 60, BUN/Creatinine Ratio 15.0, CBC w Diff Pending, WBC Pending, RBC Pending, Hgb Pending, Hct Pending, MCV Pending, MCH Pending, RDW Pending, Plt Count Pending, MPV Pending, Gran % Pending, Lymphocytes % Pending, Monocytes % Pending, Eosinophils % Pending, Basophils % Pending, Absolute Granulocytes Pending, Absolute Lymphocytes Pending, Absolute Monocytes Pending, Absolute Eosinophils Pending, Absolute Basophils Pending, PUBS MCHC Pending 10/18/16 1713: pH 7.38, pCO2 46 H, pO2 78 L, HCO3 26.2, ABG O2 Sat (Measured) 96.0, Carboxyhemoglobin 1.6, O2 Concentration % 3L, Temperature 97.5, O2 Delivery Method NC, Phlebotomy Draw Site LEFT RADIAL 10/18/16 1640: Infectious Gonzales Titer NEGATIVE 10/18/16 1630: Anion Gap 8, Estimated GFR > 60, BUN/Creatinine Ratio 15.0, Glucose 102 H, Calcium 9.5, Magnesium 2.2, Total Bilirubin 0.4, AST 29, ALT 35, Alkaline Phosphatase 116, Troponin I < 0.01, [id number] Pept 1760 H, Total Protein 7.1, Albumin 3.9, Globulin 3.2, Albumin/Globulin Ratio 1.2, Total Beta HCG NEGATIVE, D-Dimer 482 H, CBC w Diff NO MAN DIFF REQ, RBC 4.29, MCV 80.8 L, MCH 26.1 L, RDW 14.8 H, MPV 8.7, Gran % 84.7 H, Lymphocytes % 8.9 L, Monocytes % 5.1, Eosinophils % 1.0, Basophils % 0.3, Absolute Granulocytes 11.9 H, Absolute Lymphocytes 1.3, Absolute Monocytes 0.7 H, Absolute Eosinophils 0.1 , Absolute Basophils 0, PUBS MCHC 32.2 L, Hepatitis A IgM Ab Pending, Hep Bs Antigen Pending, Hep B Core IgM Ab Conf Pending, Hepatitis C Antibody Pending, HIV 1&2 Ab Western Blot NONREACTIVE Microbiology 10/19 0620 NASOPHARYN: Influenza Virus A & B Rapid Smear - COMP 10/18 2046 BLOOD: Blood Culture - RECD 10/18 2045 URINE ROUT: Legionella Antigen - COLB 10/18 2045 URINE ROUT: Streptococcus pneumoniae Antigen (M - COLB 10/18 2045 LOWER RESP: Respiratory Culture - COLB 10/18 2045 LOWER RESP: Gram Stain - COLB 10/18 183 BLOOD: Blood Culture - RECD Assessment/Plan Assessment: 1. Acute hypoxic respiratory failure most likely secondary to asthma exacerbation Patient was complaining of shortness breath, presented with oxygen saturation in the lower 80s. CTA; Extensive bilateral groundglass disease. This can represent a typical pneumonia. She responded well to steroid and azithromycin. She is under her baseline and needs oxygen now. * TRC when necessary * Continue azithromycin * Continue steroids 40 mg we will start tapering tomorrow. * We will try to wean off oxygen, if tolerated and stable possible discharge tomorrow 2. Hx of seizure 2/ benzo withdrawl. Patient answers to history of substance abuse was different to different caregivers. Given that she has a history of seizure, we will need a U tox. * We will order U tox 3. Hyperlipidemia * Atorvastatin 10 mg Regular diet DVT prophylaxis subcutaneous heparin Full code. Problem List: 1. Hypoxia 2. Benzodiazepine withdrawal 3. Anxiety Pain Ratin Pain Location: na Pain Goal: Remain pain free Pain Plan: see A&P Tomorrow's Labs & Rationales: cbc and bep EMMETT ALEMAN,MORGAN 10/19/16 1332: Attending MD Review Statement Attending Statement Attending MD Statement: examined this patient, discuss w/resident/PA/OCCUPATIONAL THERAPY TEACHER, agreed w/resident/PA/OCCUPATIONAL THERAPY TEACHER, reviewed EMR data (avail), discussed with nursing, discussed with case mgmt, reviewed images, amended to note Attending Assessment/Plan: Patient seen and examined, feeling slightly better today. Still not back to baseline and still requiring oxygen. Vital Signs Date Time Temp Pulse Resp B/P Pulse O2 O2 Flow FiO2 Ox Delivery Rate 10/19 1046 Nasal 2.0L Cannula 10/19 1020 20 95 Nasal 2.0L Cannula 10/19 0800 Nasal 3.0L Cannula 10/19 0729 98.4 89 20 120/78 93 Nasal 3.0L Cannula 10/18 2329 94 Nasal 3.0L Cannula 10/18 2257 97.9 90 20 104/66 94 Nasal 3.0L Cannula 10/18 2154 98.0 88 20 102/71 98 Nasal 4.0L Cannula 10/18 1637 98 Nasal 2.0L Cannula 10/18 1611 99.0 102 22 102/58 88 Room Air 10/18 1448 97.5 101 18 122/70 90 Room Air on exam; aox3, nad. cv; s1,s2, rrr resp; decresaed bs overall but no wheeze. abd; soft, nt, bs+ ext; no edema. Laboratory Tests 10/19 10/18 0705 1713 Blood Gas pH (7.35 - 7.45 PH) 7.38 pCO2 (35 - 45 TORR) 46 H pO2 (80 - 100 TORR) 78 L HCO3 (21 - 28 MEQ/L) 26.2 ABG O2 Sat (Measured) (>96.0 %) 96.0 Carboxyhemoglobin (1.5 - 5.0 %) 1.6 O2 Concentration % 3L Temperature (97.0 - 100.0 FARH) 97.5 O2 Delivery Method NC Chemistry Sodium (137 - 145 mmol/L) 137 Potassium (3.5 - 5.1 mmol/L) 5.4 H Chloride (98 - 107 mmol/L) 105 Carbon Dioxide (22 - 30 mmol/L) 23 Anion Gap (5 - 16) 8 BUN (7 - 17 mg/dL) 9 Creatinine (0.5 - 1.0 mg/dL) 0.6 Estimated GFR (>60 ml/min) > 60 BUN/Creatinine Ratio (7 - 25 %) 15.0 Hematology CBC w Diff NO MAN DIFF REQ WBC (4.8 - 10.8 /CUMM) 11.3 H RBC (4.20 - 5.40 /CUMM) 3.99 L Hgb (12.0 - 16.0 G/DL) 10.8 L Hct (37 - 47 %) 32.8 L MCV (81.0 - 99.0 FL) 82.1 MCH (27.0 - 31.0 PG) 26.9 L RDW (11.5 - 14.5 %) 15.1 H Plt Count (130 - 400 /CUMM) 287 MPV (7.4 - 10.4 FL) 10.0 Gran % (42.2 - 75.2 %) 89.4 H Lymphocytes % (20.5 - 51.1 %) 7.8 L Monocytes % (1.7 - 9.3 %) 2.4 Eosinophils % (0 - 5 %) 0.1 Basophils % (0.0 - 2.0 %) 0.3 Absolute Granulocytes (1.4 - 6.5 /CUMM) 10.1 H Absolute Lymphocytes (1.2 - 3.4 /CUMM) 0.9 L Absolute Monocytes (0.10 - 0.60 /CUMM) 0.3 Absolute Eosinophils (0.0 - 0.7 /CUMM) 0 Absolute Basophils (0.0 - 0.2 /CUMM) 0 PUBS MCHC (33.0 - 37.0 G/DL) 32.8 L Miscellaneous Phlebotomy Draw Site LEFT RADIAL 10/18 10/18 1640 1630 Chemistry Sodium (137 - 145 mmol/L) 135 L Potassium (3.5 - 5.1 mmol/L) 4.3 Chloride (98 - 107 mmol/L) 100 Carbon Dioxide (22 - 30 mmol/L) 27 Anion Gap (5 - 16) 8 BUN (7 - 17 mg/dL) 9 Creatinine (0.5 - 1.0 mg/dL) 0.6 Estimated GFR (>60 ml/min) > 60 BUN/Creatinine Ratio (7 - 25 %) 15.0 Glucose (65 - 99 mg/dL) 102 H Calcium (8.4 - 10.2 mg/dL) 9.5 Magnesium (1.6 - 2.3 mg/dL) 2.2 Total Bilirubin (0.2 - 1.3 mg/dL) 0.4 AST (14 - 36 U/L) 29 ALT (9 - 52 U/L) 35 Alkaline Phosphatase (<127 U/L) 116 Troponin I (< 0.11 ng/ml) < 0.01 [id number] Pept (<125 pg/mL) 1760 H Total Protein (6.3 - 8.2 g/dL) 7.1 Albumin (3.5 - 5.0 g/dL) 3.9 Globulin (1.9 - 4.2 gm/dL) 3.2 Albumin/Globulin Ratio (1.1 - 2.2 %) 1.2 Total Beta HCG (NEGATIVE) NEGATIVE Coagulation D-Dimer (70 - 232 ng/ml) 482 H Hematology CBC w Diff NO MAN DIFF REQ WBC (4.8 - 10.8 /CUMM) 14.0 H RBC (4.20 - 5.40 /CUMM) 4.29 Hgb (12.0 - 16.0 G/DL) 11.2 L Hct (37 - 47 %) 34.7 L MCV (81.0 - 99.0 FL) 80.8 L MCH (27.0 - 31.0 PG) 26.1 L RDW (11.5 - 14.5 %) 14.8 H Plt Count (130 - 400 /CUMM) 287 MPV (7.4 - 10.4 FL) 8.7 Gran % (42.2 - 75.2 %) 84.7 H Lymphocytes % (20.5 - 51.1 %) 8.9 L Monocytes % (1.7 - 9.3 %) 5.1 Eosinophils % (0 - 5 %) 1.0 Basophils % (0.0 - 2.0 %) 0.3 Absolute Granulocytes (1.4 - 6.5 /CUMM) 11.9 H Absolute Lymphocytes (1.2 - 3.4 /CUMM) 1.3 Absolute Monocytes (0.10 - 0.60 /CUMM) 0.7 H Absolute Eosinophils (0.0 - 0.7 /CUMM) 0.1 Absolute Basophils (0.0 - 0.2 /CUMM) 0 PUBS MCHC (33.0 - 37.0 G/DL) 32.2 L Serology Hepatitis A IgM Ab (NONREACTIVE) NONREACTIVE Hep Bs Antigen (NONREACTIVE) NONREACTIVE Hep B Core IgM Ab Conf (NONREACTIVE) NONREACTIVE Hepatitis C Antibody (NONREACTIVE) NONREACTIVE HIV 1&2 Ab Western Blot (NONREACTIVE) NONREACTIVE Infectious Gonzales Titer (NEGATIVE) NEGATIVE A/P; 36 y/o F with pmh sig for migraine, seizure 2/2 benzo withdrawl, hyperlipidemia, asthma, admitted with acute hypoxic respiratory failure likely secondary to asthma exacerbation, acute bronchitis. Upon questioning patient denies smoking, and urination or snorting of any drugs. She does admit to smoking cigarettes. At this point her U tox should be checked. Patient currently is getting steroids as well as azithromycin. We'll start tapering of the steroids tomorrow. We'll try to taper her oxygen. Continue TRC nebs. Chest CTA was negative for pulmonary embolism but it does show possibility off infection versus inflammation. DVT px: ALPS. If improves by tomorrow and oxygen can be tapered down to just likely can be discharged home.
[2016-10-19 08:11] LABS: ABSOLUTE BASOPHIL COUNT 0 /CUMM (0.0-0.2); ABSOLUTE EOSINOPHIL COUNT 0 /CUMM (0.0-0.7); ABSOLUTE GRANULOCYTE CT 10.1 /CUMM (1.4-6.5); ABSOLUTE LYMPH COUNT 0.9 /CUMM (1.2-3.4); ABSOLUTE MONOCYTE COUNT 0.3 /CUMM (0.10-0.60); BASOPHIL % 0.3 % (0.0-2.0); EOSINOPHIL % 0.1 % (0-5); GRANULOCYTE % 89.4 % (42.2-75.2); HEMATOCRIT 32.8 % (37-47); MEAN CORPUSCULAR HGB 26.9 PG (27.0-31.0); MEAN CORPUSCULAR HGB CONC 32.8 G/DL (33.0-37.0); MEAN CORPUSCULAR VOLUME 82.1 FL (81.0-99.0); PLATELET COUNT 287 /CUMM (130-400); RBC DISTRIBUTION WIDTH 15.1 % (11.5-14.5); RED BLOOD CELL CT 3.99 /CUMM (4.20-5.40)
[2016-10-19 09:49] LABS: WHITE BLOOD CELL COUNT 11.3 /CUMM (4.8-10.8)
[2016-10-19 14:57] VITALS: BP 136/82
--- NOTE | 2016-10-19 17:38 | Patient Discharge Instructions ---
Discharge Instructions General Discharge Information You were seen/treated for: ASTHMA EXACERBATION MOST LIKELY SECONDRY TO LUNG INFECTION Special Instructions: PLEASE FOLLOW UP WITH UROLOGY WITHIN ONE WEEK. PLEASE FOLLOW UP WITH PCP IN ONE WEEK PLEASE COME BACK IF YOUR SYMPTOMS DID NOT IMPROVE OR GOT WORSE. Please take predisnoe 10 mg as the following 3 tablets starting tomorrow for 3 days 2 Tablets for 3 days 1 tablet for 3 days Diet Continue normal diet: Yes Recommended Diet: Regular Activity Full Activity/No Limits: Yes Activity Self Limited: Yes Acute Coronary Syndrome Inclusion Criteria At DC or during hospital stay patient has or had the following: ACS DIAGNOSIS No Discharge Core Measures Meds if any: Prescribed or Continued at Discharge Meds if any: NOT Prescribed or Continued at Discharge Congestive Heart Failure Inclusion Criteria At DC or during hospital stay patient has or had the following: CHF DIAGNOSIS No Discharge Core Measures Meds if any: Prescribed or Continued at Discharge Meds if any: NOT Prescribed or Continued at Discharge Cerebrovascular accident Inclusion Criteria At DC or during hospital stay patient has or had the following: CVA/TIA Diagnosis No Discharge Core Measures Meds if any: Prescribed or Continued at Discharge Meds if any: NOT Prescribed or Continued at Discharge Venous thromboembolism Inclusion Criteria VTE Diagnosis No VTE Type NONE VTE Confirmed by (Test) NONE Discharge Core Measures - Per Current guidelines, there needs to be overlap - treatment for the first 5 days of Warfarin therapy. - If discharged on Warfarin prior to 5 days of - overlap therapy, the patient will need to be - assessed for post discharge needs including - *Post discharge parental anticoagulation - *Warfarin and/or parental anticoagulation education - *Follow up date to check INR post discharge At least 5 days overlap therapy as Inpatient No Meds if any: Prescribed or Continued at Discharge Note: Overlap Therapy is Warfarin and Anticoagulant Meds if any: NOT Prescribed or Continued at Discharge
[2016-10-19 22:30] VITALS: BP 120/70
[2016-10-20 07:08] VITALS: BP 118/70
--- NOTE | 2016-10-20 07:42 | PN- Housestaff ---
See Addendum Subjective Follow-up For: Asthma exacerbation most likely secondary to a typical pneumonia Subjective: Afebrile, Had mild episodes of cough this morning, however continued to saturate well on room air even during ambulation. She denies fever, chills, chest pain, or any other complaints. Patient stable for discharge today. Review of Systems Constitutional: Reports: no symptoms. Objective Last 24 Hrs of Vital Signs/I&O Vital Signs Date Time Temp Pulse Resp B/P Pulse O2 O2 Flow FiO2 Ox Delivery Rate 10/20 1110 98 Room Air Room Air 10/20 0800 98 Nasal 1.0L Cannula 10/20 0708 98.1 82 20 118/70 98 Nasal 1.0L Cannula 10/20 0410 98 Nasal 1.0L Cannula 10/20 0000 Room Air 1.0L 10/19 2230 97.6 90 20 120/70 95 Nasal Cannula 10/19 2150 95 Nasal 1.0L Cannula 10/19 1600 Nasal 1.0L Cannula 10/19 1457 97.8 87 20 136/82 93 Intake & Output 10/20 1600 10/20 0800 10/20 0000 Intake Total 240 250 Output Total Balance 240 250 Intake, IV 250 Intake, Oral 240 Physical Exam General Appearance: Alert, Oriented X3, Cooperative, No Acute Distress Skin: No Rashes HEENT: Atraumatic, PERRLA, EOMI, Mucous Membr. moist/pink Cardiovascular: Regular Rate, Normal S1, Normal S2, No Murmurs Lungs: Clear to Auscultation Abdomen: Normal Bowel Sounds, Soft, No Tenderness Neurological: Normal Gait, Normal Speech Extremities: No Clubbing, No Cyanosis, No Edema Current Medications: Current Medications Sig/Hilario Start time Last Medication Dose Route Stop Time Status Admin Acetaminophen 650 MG Q6P PRN 10/18 2044 AC PO Albuterol Sulfate 3 ML Q4P PRN 10/18 2100 AC 10/20 INH 1108 Alprazolam 0.5 MG TID 10/180 AC 10/20 PO 10/25 2159 0859 Atorvastatin Calcium 10 MG DAILY 10/19 1000 AC 10/20 PO 0859 Azithromycin 250 MG DAILY 10/20 1000 AC 10/20 PO 1114 Azithromycin 500 MG 2000 10/20 1999 DC 10/19 Sodium Chloride 250 ML IV 2011 Fluoxetine HCl 20 MG DAILY 10/19 1000 AC 10/20 PO 0858 Guaifenesin 10 ML .STK-MED ONE 10/20 0323 DC PO 10/20 0324 Guaifenesin 10 ML Q4P PRN 10/19 0800 AC 10/20 PO 0326 Nicotine 21 MG DAILY 10/19 1000 AC 10/20 TOP 0859 Patient Medication 1 ED .STK-MED ONE 10/19 1409 DC Teaching ED 10/19 1410 Prednisone 40 MG DAILY 10/20 1000 AC 10/20 PO 0858 Prochlorperazine 10 MG Q6P PRN 10/18 2045 AC IV Temazepam 15 MG AT BEDTIME 10/18 2215 AC 10/19 PO 2155 Tizanidine HCl 4 MG 4 TIMES/DAY PRN 10/18 2200 AC PO Last 24 Hrs of Lab/Speedy Results Last 24 Hrs of Labs/Mics: Laboratory Tests 10/20/16 0821: Anion Gap 9, Estimated GFR > 60, BUN/Creatinine Ratio 23.3 Microbiology 10/19 1355 URINE ROUT: Legionella Antigen - COLB 10/19 135 URINE ROUT: Streptococcus pneumoniae Antigen (M - COLB Assessment/Plan Assessment: 1. Acute hypoxic respiratory failure most likely secondary to asthma exacerbation On presentation she was complaining of shortness breath, presented with oxygen saturation in the lower 80s. CTA; Extensive bilateral groundglass disease. This can represent a typical pneumonia. She responded well to steroid and azithromycin. Today she is saturating very well on room air even during ambulation. Patient is stable for discharge today. * Switch IV 500 mg azithromycin to oral 250 azithromycin to finish 5 days of antibiotic. * Continue steroids 40 mg today, she'll be discharged steroid taper * Patient was instructed to follow up with case resolution specialist as an outpatient. 2. Hx of seizure 2/2 benzo withdrawl. Patient answers to history of substance abuse was different to different caregivers. Given that she has a history of seizure, we will need a U tox, however patient did not provide urine sample for it. * Close monitoring 3. Hyperlipidemia * Atorvastatin 10 mg Regular diet DVT prophylaxis subcutaneous heparin Full code. Problem List: 1. Hypoxia 2. Anxiety Pain Ratin Pain Location: NA Pain Goal: Remain pain free Pain Plan: See assessment and plan Tomorrow's Labs & Rationales: None as she will be discharged today
[2016-10-20] MEDS ORDERED: PREDNISONE10 M2 PO ×2 (08:21→13:45)
[2016-10-20] MEDS ORDERED: XOPENEX HFA15 GM INH ×2 (10:56→13:45)
[2016-10-20] MEDS ORDERED: AZITHROMYCIN250 M1 PO (11:49)
--- NOTE | 2016-10-20 16:20 | Discharge Summary ---
Visit Information Visit Dates Admission Date: 10/18/16 Discharge Date: 10/20/16 Hospital Course Course Attending Physician: MORGAN CHRISTINE MD Primary Care Physician: ROMERO ALEMAN,[facility] Course: Acute hypoxic respiratory failure most likely secondary to asthma exacerbation Patient was complaining of shortness breath, presented with oxygen saturation in the lower 80s. CTA; Was negative for PE, however it showed ; Extensive bilateral groundglass disease. This can represent atypical pneumonia. She responded well to steroid, azithromycin, and oxygen. After patient became stable, saturating well on room air, she was discharged and instructed to follow the course of antibiotic, and to take prednisone taper exactly as prescribed. She was also instructed to follow up with her primary care within 1 week. Patient was also given a referral for gear technician Dr. Mcguire. 2.1 cm low attenuating mass medial upper right kidney Patient is aware of the kidney mass, she was instructed to follow up with urologist Dr. Whitlock as an outpatient. It was clearly explained to the patient that this mass must be addressed. On discharge patient was continued on all her home medication that she was taking prior to admission. Allergies: Coded Allergies: ezetimibe (From ZETIA) (Intermediate, RASH TO HANDS 11/03/15) doxycycline (Mild, RASH AND FEVER 11/03/15) ketorolac (Mild, HIVES, FEVER 11/03/15) Pertinent Lab Results: SERVICE DATE: 10/[id number] TYPE: CAT - CTA CHEST-PULMONARY EMBOLISM EXAMINATION: CT ANGIOGRAM OF THE CHEST WITH AND WITHOUT CONTRAST (CT PULMONARY ANGIOGRAM FOR PE) CLINICAL INFORMATION: Cough. Elevated d-dimer. Clinical concern regarding pulmonary embolus COMPARISON: None TECHNIQUE: Prior to contrast administration, noncontrast localization images were obtained. Subsequently, multidetector volumetric imaging was performed from the thoracic inlet to below the diaphragms following the administration of 95 mL Optiray 350 intravenous contrast. No contrast reaction reported Sagittal, coronal, and MIP oblique sagittal reformatted images were obtained on the CT workstation, uploaded to PACS, and reviewed. Total exam dose-length product 492 mGy-cm FINDINGS: DIGITAL SOUND ART INSTRUCTOR: Diffuse opacities throughout both lungs QUALITY OF STUDY/CONTRAST BOLUS: Satisfactory. There is motion artifact PULMONARY ARTERIES: No pulmonary embolus demonstrated THORACIC AORTA: No aneurysm or dissection. LUNG: No abnormality the trachea or mainstem bronchi. There are extensive perihilar and diffuse areas of groundglass disease with sparing of the peripheral lungs. Pattern suggests edema. PLEURA: No significant pleural fluid. Trace thickening in the extreme posterior cusp and sulci. There is no pneumothorax MEDIASTINUM: There are no enlarged mediastinal or hilar lymph nodes. There is no pericardial fluid. No suspicious abnormality esophagus No evidence of septal bowing or right heart strain. CHEST WALL/AXILLA: No axillary or internal mammary lymphadenopathy. OSSEOUS STRUCTURES: No suspicious focal bony lesion UPPER ABDOMEN: Incompletely characterized rounded low attenuating lesion medial upper right kidney. This measures 28 Hounsfield units after contrast. This has either developed or increased when compared to abdomen 12/07/09. Neoplasm not excluded. Further evaluation warranted. No reflux of contrast into the hepatic veins to suggest elevated right heart pressures. IMPRESSION: No pulmonary embolus. Extensive bilateral groundglass disease. This could be related to edema 2.1 cm low attenuating mass medial upper right kidney. Differential includes malignancy. Further evaluation warranted. If there is any evidence of focal pyelonephritis medical management and follow-up imaging recommended. VTE: negative Disposition Summary Disposition Principal Diagnosis: Asthma exacerbation secondary to atypical pneumonia Additional Diagnosis: Kidney mass Discharge Disposition: home or self care Discharge Instructions General Discharge Information Code Status: Full Code Patient's Diet: Regular diet Patient's Activity: Can ambulate as tolerated Follow-Up Instructions/Appts: Please follow up with gear technician Dr. Mcguire Please follow up with urologist Dr. Whitlock. Please follow up with your primary care doctor Medications at Discharge Discharge Medications: Continue taking these medications: Zolmitriptan (Zolmitriptan Odt) 5 MG TAB.RAPDIS 1 Tablet ORAL As Directed as needed for MIGRAINES Qty = 2 Comments: NOT TAKEN IN HOSPITAL Pantoprazole Sodium (Pantoprazole Sodium) 40 MG TABLET.DR 1 Tablet ORAL DAILY Qty = 30 Comments: NOT TAKEN IN HOSPITAL Atorvastatin Calcium (Atorvastatin Calcium) 10 MG TABLET 1 Tablet ORAL DAILY Qty = 30 Comments: Last Taken: 10/20/16 Time: 0900 Tizanidine HCl (Tizanidine HCl) 4 MG TABLET 1 Tablet ORAL 4 TIMES A DAY as needed for TMJ syndrome Qty = 90 Comments: NOT TAKEN IN HOSPITAL Albuterol Sulfate (Albuterol Sulfate) 1.25 MG/3 ML VIAL.NEB 1 Vial Inhale Solution EVERY 4-6 HOURS as needed for ASTHMA Comments: NOT TAKEN IN HOSPITAL Alprazolam (Alprazolam) 0.5 MG TABLET 1 Tablet ORAL THREE TIMES DAILY Qty = 90 Comments: LAST TAKEN 10/20 AT 0900 Fluoxetine HCl (Fluoxetine HCl) 20 MG CAPSULE 1 Capsule ORAL DAILY Qty = 30 Comments: TAKEN 10/20/16 AT 0900 Temazepam (Temazepam) 15 MG CAPSULE 1 Capsule ORAL Every night as needed Qty = 30 Levalbuterol Tartrate (Xopenex Hfa) 15 GM HFA.AER.AD 2 Puff Inhale through mouth EVERY 4-6 HOURS NEEDED as needed for ASTHMA Qty = 1 Instructions: . This prescription has been renewed Start taking the following new medications: Prednisone (Prednisone) 10 MG TABLET 1 Tablet ORAL DAILY Qty = 21 No Refills Instructions: 3 PILL X 3 DAYS 2 PILL X 3 DAYS 1 PILL X 3 DAYS. Azithromycin (Azithromycin) 250 MG TABLET 250 Milligram ORAL DAILY Qty = 2 No Refills Comments: TAKEN 10/20 AT 10AM. Copies To: DESMOND ALEMAN,ANAYA; GAIL ALEMAN,SYBIL
== END 2016-10-20 12:16 | DRG 193 ==
LOC: ENRESERVDT → ENRESERVTM → ERH 14:42 → ERHI 20:40 → ENPENDDIS 20:40 → 2NA 20:40
PROVIDERS: Internal Medicine Hematology & Oncology; Physician Assistant; ADMIT Student in an Organized Health Care Education/Training Program
DX: J18.9 Pneumonia, unspecified organism (principal); J96.01 Acute respiratory failure with hypoxia; N28.1 Cyst of kidney, acquired; F13.20 Sedative, hypnotic or anxiolytic dependence, uncomplicated; J45.901 Unspecified asthma with (acute) exacerbation; F17.210 Nicotine dependence, cigarettes, uncomplicated; E78.5 Hyperlipidemia, unspecified; F11.90 Opioid use, unspecified, uncomplicated; K21.9 Gastro-esophageal reflux disease without esophagitis; F41.9 Anxiety disorder, unspecified; F32.9 Major depressive disorder, single episode, unspecified; G43.909 Migraine, unspecified, not intractable, without status migrainosus
CPT/HCPCS: 2NAP; 80307; 81025; 82436; 87040; 87070; 87389; 87449; 87450; 87804; 87804-59; 93005; 93010; 96374; 96375; 99291; J0456; J0696; J0780; J7040; J7512; Q2036

== ENCOUNTER 2018-03-12 16:58 | Emergency (ER) | payer OTHER ==
[~2018-03-12] VITALS: Ht 170.2 cm; Wt 90.7 kg
[~2018-03-12 16:58] MED LIST changes: +ALPRAZOLAM0.5 M4 PO; +AZITHROMYCIN250 M1 PO; +FLUOXETINE HCL20 M2 PO; +PREDNISONE10 M2 PO; +TEMAZEPAM15 M1 PO
--- NOTE | 2018-03-12 17:28 | ED GENERAL ADULT ---
History of Present Illness General Chief Complaint: General Adult Stated Complaint: MED REQ Source: patient Exam Limitations: no limitations Vital Signs & Intake/Output Vital Signs & Intake/Output Vital Signs Date Time Temp Pulse Resp B/P B/P Pulse O2 O2 Flow FiO2 Mean Ox Delivery Rate 03/12 1701 99.0 112 16 131/83 98 Room Air Allergies Coded Allergies: ezetimibe (From ZETIA) (Intermediate, RASH TO HANDS 11/03/15) doxycycline (Mild, RASH AND FEVER 11/03/15) ketorolac (Mild, HIVES, FEVER 11/03/15) Reconcile Medications Albuterol Sulfate 1.25 MG/3 ML VIAL.NEB 1 Vial INH/SANTA Q4-6 PRN ASTHMA ( Reported) Alprazolam 0.5 MG TABLET 1 TAB PO TID anxiety (Reported) Atorvastatin Calcium 10 MG TABLET 1 TAB PO DAILY CHOLESTEROL (Reported) Azithromycin 250 MG TABLET 250 MG PO DAILY LUNG INFECTION Fluoxetine HCl 20 MG CAPSULE 1 CAP PO DAILY DEPRESSION/ANXIETY (Reported) Levalbuterol Tartrate (Xopenex Hfa) 15 GM HFA.AER.AD 2 PUF INH Q4-6 PRN PRN ASTHMA . Pantoprazole Sodium 40 MG TABLET.DR 1 TAB PO DAILY GI (Reported) Prednisone 10 MG TABLET 1 TAB PO DAILY BREATHING 3 PILL X 3 DAYS 2 PILL X 3 DAYS 1 PILL X 3 DAYS. Temazepam 15 MG CAPSULE 1 CAP PO QPMP SLEEP AIDE (Reported) Tizanidine HCl 4 MG TABLET 1 TAB PO FOUR TIMES A DAY PRN TMJ syndrome ( Reported) Zolmitriptan (Zolmitriptan Odt) 5 MG TAB.RAPDIS 1 TAB PO AD PRN MIGRAINES ( Reported) Triage Note: PT TO ER , NOTED WITH DIAPHORESIS , BEADS OF SWEAT POURING OFF HER FACE AND CONFUSED WITH BASELINE QUESTIONS, DENIES PAIN /SI/HI. PT ALSO STATES THAT SHE FELL BUT IS UNSURE OF WHEN , NOTED WITH HEALING ABRASION TO R SIDE FACE CHIN. Triage Nurses Notes Reviewed? yes : No Patient currently breastfeeds: No HPI: Patient presents requesting a refill for her Xanax. Patient takes 2 mg 3 times a day. Patient ran out of her Xanax. Patient is unsure when she ran out of her Xanax. Patient is unsure why she ran out early. Patient does not know if she took extra or lost them. Patient is unsure when her next psychiatric appointment is. Patient was vomiting at triage. Patient was diaphoretic. Patient received IV Ativan and is now very comfortable in the ER room. She denies any homicidal or suicidal ideations. Past History Travel History Traveled to [place] past 21 day No Medical History Any Pertinent Medical History? 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 KNEE SURGERY, Lap for ruptured ovarian cyst Psychosocial History Who do you live with Patient/Self Services at Home None What is your primary language Telugu Tobacco Use: Never used ETOH Use: denies use Illicit Drug Use: denies illicit drug use Family History Family History, If Any: MOTHER FATHER (CAD). Hx Contributory? No Review of Systems Review of Systems Constitutional: Reports: no symptoms. EENTM: Reports: no symptoms. Respiratory: Reports: no symptoms. Cardiovascular: Reports: no symptoms. GI: Reports: see HPI, nausea, vomiting. Genitourinary: Reports: no symptoms. Musculoskeletal: Reports: no symptoms. Skin: Reports: no symptoms. Neurological/Psychological: Reports: see HPI, anxiety. Hematologic/Endocrine: Reports: no symptoms. Immunologic/Allergic: Reports: no symptoms. All Other Systems: Reviewed and Negative Physical Exam Physical Exam General Appearance: well developed/nourished, alert, awake, anxious, moderate distress Head: atraumatic, normal appearance Eyes: Bilateral: PERRL, EOMI. Ears, Nose, Throat: normal pharynx, hearing grossly normal Neck: normal inspection, supple, full range of motion Respiratory: normal breath sounds, chest non-tender, no respiratory distress, lungs clear Cardiovascular: regular rate/rhythm, normal peripheral pulses Gastrointestinal: normal bowel sounds, soft, non-tender, no organomegaly Back: normal inspection, normal range of motion Extremities: normal inspection, normal capillary refill, normal range of motion, no edema Neurologic/Psych: no motor/sensory deficits, awake, alert, oriented x 3, normal mood/affect Skin: intact, normal color, warm/dry Core Measures ACS in differential dx? No CVA/TIA Diagnosis: No Sepsis Present: No Sepsis Focused Exam Completed? No Progress Differential Diagnoses I considered the following diagnoses in my evaluation of the patient: [Benzo withdrawal, electrolyte abnormality] Plan of Care: Orders Procedure Date/time Status URINE DRUGS OF ABUSE 03/12 1705 Active ETHANOL 03/12 1705 Complete COMPREHENSIVE METABOLIC PANEL 03/12 1705 Complete CBC WITHOUT DIFFERENTIAL 03/12 1705 Active Current Medications Sig/Hilario Start time Last Medication Dose Stop Time Status Admin Alprazolam 2 MG ONCE ONE 03/12 1715 CAN (Xanax) 03/12 1716 Ondansetron HCl 4 MG ONCE ONE 03/12 1715 CAN (Zofran) 03/12 1716 Laboratory Tests 03/12/18 1758: Anion Gap 16, Estimated GFR > 60, BUN/Creatinine Ratio 22.9, Glucose 128 H, Calcium 10.2, Total Bilirubin 0.4, AST 24, ALT 19, Alkaline Phosphatase 79, Total Protein 8.3 H, Albumin 5.0, Globulin 3.3, Albumin/Globulin Ratio 1.5, CBC w Diff Pending, WBC Pending, RBC Pending, Hgb Pending, Hct Pending, MCV Pending, MCH Pending, MCHC Pending, RDW Pending, Plt Count Pending, MPV Pending, Gran % Pending, Lymphocytes % Pending, Monocytes % Pending, Eosinophils % Pending, Basophils % Pending, Absolute Granulocytes Pending, Absolute Lymphocytes Pending , Absolute Monocytes Pending, Absolute Eosinophils Pending, Absolute Basophils Pending, Serum Alcohol < 10.0 Initial ED EKG: none Comments: According to see T PE and PE patient is due to have a refill of her Xanax on the Patient is now awake alert and oriented 3. Patient states that she has occasionally taken extra of her Xanax. Patient had an appointment with her psychiatrist yesterday however missed it because she had no ride. Patient denies any suicidal or homicidal ideations. Departure Departure Disposition: HOME OR SELF CARE Condition: Stable Clinical Impression Primary Impression: Benzodiazepine withdrawal Referrals: Patient Has No Primary Care Dr (PCP/Family) Additional Instructions: Follow-up with her psychiatrist and let him know that you ran out early. Return for any concerns. Departure Forms: Customer Survey General Discharge Information Prescriptions: Current Visit Scripts Alprazolam (Xanax) 2 TAB PO TIDPRN PRN ANXIETY #24 TAB Critical Care Note Critical Care Note Critical Care Time: non-applicable
[2018-03-12 18:06] LABS: ABSOLUTE BASOPHIL COUNT 0 /CUMM (0.0-0.2); ABSOLUTE EOSINOPHIL COUNT 0 /CUMM (0.0-0.7); ABSOLUTE GRANULOCYTE CT 14.2 /CUMM (1.4-6.5); ABSOLUTE LYMPH COUNT 0.8 /CUMM (1.2-3.4); ABSOLUTE MONOCYTE COUNT 0.8 /CUMM (0.10-0.60); BASOPHIL % 0.1 % (0.0-2.0); EOSINOPHIL % 0 % (0-5); HEMATOCRIT 36.8 % (37-47); MEAN CORPUSCULAR HGB CONC 33.8 G/DL (33.0-37.0); MEAN CORPUSCULAR VOLUME 79.8 FL (81.0-99.0); MEAN PLATELET VOLUME 8.7 FL (7.4-10.4); PLATELET COUNT 337 /CUMM (130-400); RBC DISTRIBUTION WIDTH 15.7 % (11.5-14.5); RED BLOOD CELL CT 4.61 /CUMM (4.20-5.40); WHITE BLOOD CELL COUNT 15.8 /CUMM (4.8-10.8)
[2018-03-12] MEDS ORDERED: XANAX1 M1 PO (18:46)
[2018-03-12 18:48] LABS: GRANULOCYTE % 89.4 % (42.2-75.2)
[2018-03-12 19:59] VITALS: BP 120/78
== END 2018-03-12 20:14 ==
LOC: ERH 16:58
PROVIDERS: Physician Assistant
DX: F13.239 Sedative, hypnotic or anxiolytic dependence with withdrawal, unspecified (principal); R61 Generalized hyperhidrosis; R41.0 Disorientation, unspecified; J45.909 Unspecified asthma, uncomplicated; E78.5 Hyperlipidemia, unspecified
CPT/HCPCS: 80307; 96374; 96375; G0480; J2405; J3101